=== PATIENT | male | born 1985 | race Caucasian/White ===

== ENCOUNTER 2023-12-12 17:57 | Emergency (ER) | payer BC ==
[~2023-12-12] VITALS: Ht 180.3 cm; Wt 108.9 kg
[2023-12-12] MEDS ORDERED: CETI-194 PO (18:51)
[2023-12-12] MEDS ORDERED: PRED50TA PO (18:51)
[2023-12-12] MEDS ORDERED: predniSONE 20 MG TABLET ONE (18:54)
[2023-12-12] MEDS ORDERED: diphenhydrAMINE HCL 50 MG CAPSULE ONE (18:55)
[2023-12-12] MEDS ORDERED: FAMOTIDINE (20 MG) 20 MG TABLET ONE (18:55)
[2023-12-12] MEDS: diphenhydrAMINE HCL 50 MG CAPSULE PO ONE (19:00)
[2023-12-12] MEDS: predniSONE 10 MG TABLET PO ONE (19:00)
[2023-12-12] MEDS: FAMOTIDINE (20 MG) 20 MG TABLET PO ONE (19:00)
[2023-12-12 19:01] VITALS: BP 141/85; TEMP 97.8; O2SAT 100
== END 2023-12-12 19:01 | disposition home or self-care (01) ==
LOC: ER 18:24
DX: L50.9 Urticaria, unspecified (principal); T78.1XXA Other adverse food reactions, not elsewhere classified, initial encounter; J45.909 Unspecified asthma, uncomplicated; X58.XXXA Exposure to other specified factors, initial encounter
CPT/HCPCS: 99284; Q0163; J7512 ×2